=== PATIENT | male | born 1995 | race Caucasian/White ===

== ENCOUNTER 2017-04-22 12:53 | Emergency (ER) | payer MEDICAID ==
[~2017-04-22] VITALS: Ht 188 cm; Wt 120.0 kg
[2017-04-22 13:44] VITALS: BP 116/74
[2017-04-22] MEDS ORDERED: PREDNISONE 20MG TABLET PO ONE (14:15)
[2017-04-22] MEDS ORDERED: FAMOTIDINE 20MG TABLET PO ONE (14:15)
== END 2017-04-22 14:50 | disposition home or self-care (01) ==
LOC: ER 13:54
DX: L50.0 Allergic urticaria (principal); T78.40XA Allergy, unspecified, initial encounter; F12.10 Cannabis abuse, uncomplicated; R06.02 Shortness of breath
CPT/HCPCS: 99283; J7512